=== PATIENT | female | born 1960 | race Caucasian/White ===

== ENCOUNTER → 2018-04-30 | Outpatient (CLI) | payer MEDICAID | END | disposition home or self-care (01) | LOC: ROC 04-27 09:17 | PROVIDERS: ATTEND Radiology Radiation Oncology | DX: D32.0 Benign neoplasm of cerebral meninges (principal) | CPT/HCPCS: 77290; 77334; 77470; 99214; G0463 ==

== ENCOUNTER → 2018-05-06 | Outpatient (CLI) | payer MEDICAID ==
[~2018-05-06] MED LIST: GADOBUTROL 10 MMOL/10 ML PFS ONE
== END | disposition home or self-care (01) ==
LOC: CFH 11:27
PROVIDERS: ATTEND Radiology Radiation Oncology
DX: D32.0 Benign neoplasm of cerebral meninges (principal)
CPT/HCPCS: 70553; 82565; A9585

== ENCOUNTER → 2018-07-26 | Outpatient (CLI) | payer MEDICAID | END | disposition home or self-care (01) | LOC: ROC 08:38 | PROVIDERS: ATTEND Radiology Radiation Oncology | DX: D32.0 Benign neoplasm of cerebral meninges (principal) | CPT/HCPCS: 99212; G0463 ==

== ENCOUNTER → 2018-11-29 | Outpatient (CLI) | payer MEDICAID | END | disposition home or self-care (01) | LOC: ROC 13:01 | PROVIDERS: ATTEND Radiology Radiation Oncology | DX: Z08 Encounter for follow-up examination after completed treatment for malignant neoplasm (principal); D32.0 Benign neoplasm of cerebral meninges | CPT/HCPCS: 99213; G0463 ==

== ENCOUNTER → 2018-11-29 | Outpatient (CLI) | payer MEDICAID | END | disposition home or self-care (01) | LOC: CFH 10:10 | PROVIDERS: ATTEND Radiology Radiation Oncology | DX: D32.0 Benign neoplasm of cerebral meninges (principal); Z91.010 Allergy to peanuts | CPT/HCPCS: 70553; A9585 ==

== ENCOUNTER 2020-03-01 08:23 | Outpatient (CLI) | payer MEDICAID | END 2020-03-01 23:59 | disposition home or self-care (01) | LOC: ROC 08:23 | PROVIDERS: ATTEND Radiology Radiation Oncology | DX: Z08 Encounter for follow-up examination after completed treatment for malignant neoplasm (principal); Z86.011 Personal history of benign neoplasm of the brain | CPT/HCPCS: 99213; G0463 ==